=== PATIENT | female | born 1980 | race Two or more races ===

== ENCOUNTER 2020-03-10 10:34 | Emergency (ER) | payer OTHER ==
[~2020-03-10] VITALS: Ht 160 cm; Wt 60.0 kg
--- NOTE | 2020-03-10 10:55 | PHYS DOC ---
General Adult EDM: Chief Complaint: FOOT INJURY PAIN HPI: HPI: 39 yo F who denies any significant past medical history, presents the ED with complaints of rolling her ankle while she was outside running/exercising. Pt states she stepped on a "nut" and her foot inverted. No head injury or LOC, on no AC. No prior injury to the left ankle. Complains of pain over her left lateral malleolus with swelling, no relief with 400 mg of Motrin. LMP second week of January. Review of Systems: Review of Systems: Constitutional: Denies fever or chills Eyes: Denies change in visual acuity HENT: Denies nasal congestion or sore throat Respiratory: Denies cough or shortness of breath Cardiovascular: Denies chest pain or edema GI: Denies abdominal pain, nausea, vomiting, bloody stools or diarrhea : Denies dysuria Musculoskeletal: Denies back pain or saddle anesthesia Integument: Denies rash Neurologic: Denies headache, focal weakness or sensory changes Endocrine: Denies polyuria or polydipsia Lymphatic: Denies swollen glands Psychiatric: Denies depression or anxiety Heart Score: Risk Factors: Risk Factors: DM, Current or recent (<one month) smoker, HTN, HLP, family history of CAD, obesity. Risk Scores: Score 0 - 3: 2.5% MACE over next 6 weeks - Discharge Home Score 4 - 6: 20.3% MACE over next 6 weeks - Admit for Clinical Observation Score 7 - 10: 72.7% MACE over next 6 weeks - Early Invasive Strategies Physical Exam: PE: Constitutional: Well developed, well nourished, no acute distress, non-toxic appearance. [] HENT: Normocephalic, atraumatic, bilateral external ears normal, oropharynx moist, no oral exudates, nose normal. [] Eyes: PERRLA, EOMI, conjunctiva normal, no discharge. [] Neck: Normal range of motion, supple, no stridor. [] Cardiovascular:Heart rate regular rhythm, no murmur [] Lungs & Thorax: Bilateral breath sounds clear to auscultation [] Abdomen: Bowel sounds normal, soft, no tenderness, no masses, no pulsatile masses. [] Skin: Warm, dry, no erythema, no rash. [] Back: No tenderness, no CVA tenderness. [] Extremities: +left lateral malleoli with swelling/ttp, able to L ankle dorsiflex and plantarflex, no pain over the left knee joint or fibular head or hip, no cyanosis, no clubbing, Neurologic: Alert and oriented X 3, normal motor function, normal sensory function, no focal deficits noted. [] Psychologic: Affect normal, judgement normal, mood normal. [] EKG: EKG: [] Radiology/Procedures: Radiology/Procedures: IMAGING REPORT Signed PATIENT: JOSE JUAN MEJIAS EACCOUNT: [id number] : 1980 LOCATION: ER AGE: 39 SEX: F EXAM STATUS: REG ER ORD. PHYSICIAN: RAMAN MOYA DO REASON: LEFT ANKLE PAIN PROCEDURE: ANKLE LEFT 3V AP lateral and oblique views of the left ankle no comparison. INDICATION: Ankle pain. FINDINGS: No fracture subluxation or dislocation. No significant degenerative change. No soft tissue swelling. Electronically signed by: Devaughn Bell MD (03/10/2020 11:58 AM) [id number] DICTATED AND SIGNED BY: DEVAUGHN BELL MD DATE: 03/10/20 1158 CC: NON,STAFF; RAMAN MOYA DO ~ Course & Med Decision Making: Course & Med Decision Making Pertinent Labs and Imaging studies reviewed. (See chart for details) Concern for left lateral ankle sprain, cannot exclude any ligamentous injury. Will DC home with crutches and Ankit wrap. Recommend rice instructions, anti- inflammatories and conservative management. Strict ED return precautions were given for repeat injury, neurologic deficits or severe pain. Encouraged urgent outpatient follow-up with PMD and Ortho. Life-threatening processes were considered but are low suspicion at this time, given history and physical exam. Pt was educated on all prescription medications and adverse effects. All patient's questions were answered and pt was stable at time of discharge. Life/limb-threatening differential includes but is not limited to, fracture, dislocation, laceration, osteomyelitis, compartment syndrome, neurovascular injury or deficit, infection (abscess, cellulitis, septic arthritis), head/neck trauma, tendon or ligament injury. I spoken with the patient and her caregivers. I explained the patient's condition, diagnoses and treatment plan based on the information available to me at this time. I have answered the patient and her caregiver's questions and addressed any concerns. The patient and her caregivers have a good understanding of patient's diagnosis, condition and treatment plan as can be expected at this point. Vital signs have been stable. Patient's condition is stable and appropriate for discharge from the emergency department. Patient will pursue further outpatient evaluation with primary care physician or other designated or consulting physician as outlined in the discharge instructions. The patient and/or caregivers are agreeable to this plan of care and follow-up instructions have been explained in detail. The patient and/or caregivers have received these instructions in written form and have expressed an understanding of the discharge instructions. The patient and/or caregivers are aware that any significant change of condition or worsening of symptoms should prompt immediate return to this or the closest emergency department or call to [facility] Disclaimer: Quiana Disclaimer: This electronic medical record was generated, in whole or in part, using a voice recognition dictation system. Departure Departure: Impression: Primary Impression: Ankle pain, left Additional Impression: Swelling of left ankle joint Disposition: 01 DC HOME SELF CARE/HOMELESS Condition: STABLE Referrals: NON,STAFF (PCP) FOLLOW UP WITH FAMILY MEDICINE: [facility], [facility] [address] [facility] [address] [place] [address] [address], [facility] Instructions: Ankle Sprain, RICE - Routine Care for Injuries Additional Instructions: FOLLOW UP WITH ORTHOPEDICS: [facility] [address] [facility] [place] [address] EMERGENCY DEPARTMENT GENERAL DISCHARGE INSTRUCTIONS Thank you for coming to [facility] (ED) today and trusting us with you care. We trust that you had a positivie experience in our Emergency Department. If you wish to speak to the department management, you may call the director at [phone]. YOUR FOLLOW UP INSTRUCTIONS ARE FOLLOWS: 1. Do you have a private Doctor? If you do not have a private doctor, please ask for a resource list of physicians or clinics that may be able to assist you with follow up care. 2. The Emergency Physician has interpreted your x-rays. The X-Ray specialist will also review them. If there is a change in the findings, you will be notified in 48 hours when at all possible. 3. A lab test or culture has been done, your results will be reviewed and you will be notified if you need a change in treatment. ADDITIONAL INSTRUCTIONS AND INFORMATION: 1. Your care today has been supervised by a physician who is specially trained in emergency care. Many problems require more than one evaluation for a complete diagnosis and treatment. We recommend that you schedule your follow up appointment as recommended to ensure complete treatment of you illness or injury. If you are unable to obtain follow up care and continue to have a problem, or if your condition worsens, we recommend that you return to the ED. 2. We are not able to safely determine your condition over the phone nor are we able to give sound medical advice over the phone. For these safety reasons, if you call for medical advice we will ask you to come to the ED for further evaluation. 3. If you have any questions regarding these discharge instructions please call the ED at [phone]. SAFETY INFORMATION: In the interest of safety, wellness, and injury prevention; we encourage you to wear your sealbelt, if you smoke; quite smoking, and we encourage family to use a protective helmet for bicycling and other sporting events that present an increased risk for head injury. IF YOUR SYMPTOMS WORSEN OR NEW SYMPTOMS DEVELOP, OR YOU HAVE CONCERNS ABOUT YOUR CONDITION; OR IF YOUR CONDITION WORSENS WHILE YOU ARE WAITING FOR YOUR FOLLOW UP APPOINTMENT; EITHER CONTACT YOUR PRIMARY CARE DOCTOR, THE PHYSICIAN WHOSE NAME AND NUMBER YOU WERE GIVEN, OR RETURN TO THE ED IMMEDIATELY. RAMAN PATEL DO Mar 10, 2020 10:55
[2020-03-10] MEDS ORDERED: ACETAMINOPHEN 325 MG TABLET PO ONE (11:30)
--- NOTE | 2020-03-10 12:02 | RAD ---
AP lateral and oblique views of the left ankle no comparison. INDICATION: Ankle pain. FINDINGS: No fracture subluxation or dislocation. No significant degenerative change. No soft tissue swelling. Electronically signed by: Devaughn Bell MD (03/10/2020 11:58 AM) [id number]
== END 2020-03-10 12:20 | disposition home or self-care (01) ==
LOC: ER 10:34
DX: M25.572 Pain in left ankle and joints of left foot (principal); R22.42 Localized swelling, mass and lump, left lower limb
CPT/HCPCS: 73610; 99283